=== PATIENT | female | born 2000 ===

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

== ENCOUNTER 2022-11-13 01:47 | Emergency (ER) | payer OTHER ==
[~2022-11-13] VITALS: Ht 167.6 cm; Wt 73.9 kg
== END 2022-11-13 06:37 | disposition home or self-care (01) ==
LOC: EMR PED 01:47
DX: K29.60 Other gastritis without bleeding (principal); Z88.8 Allergy status to other drugs, medicaments and biological substances; Z91.038 Other insect allergy status